=== PATIENT | male | born 1985 | race Caucasian/White ===

== ENCOUNTER 2016-12-25 16:57 | Emergency (ER) | payer OTHER | END 2016-12-25 17:31 | disposition home or self-care (01) | LOC: ER 16:57 | DX: L03.031 Cellulitis of right toe (principal); I10 Essential (primary) hypertension; F17.290 Nicotine dependence, other tobacco product, uncomplicated; Z79.899 Other long term (current) drug therapy; Z88.5 Allergy status to narcotic agent; Z88.8 Allergy status to other drugs, medicaments and biological substances ==